=== PATIENT | male | born 1990 | race Caucasian/White ===

== ENCOUNTER 2017-02-27 10:54 | Emergency (ER) | payer SELFPAY ==
[~2017-02-27] VITALS: Ht 180.3 cm; Wt 68.0 kg
[~2017-02-27 10:54] MED LIST: AFRIN 20 ML20 M1 NS; AUGMENTIN 875-1 EACH PO; NOMEDS XX; SILVADENE CR 4400 GM EX; VICODIN 5/6 EACH/PAK OR; XANAX 1MG TABLET1 MG PO
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
[2017-02-27 11:25] VITALS: BP 143/81
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
== END 2017-02-27 11:25 | disposition home or self-care (01) ==
LOC: ER 10:54
DX: S62.624A Displaced fracture of middle phalanx of right ring finger, initial encounter for closed fracture (principal); V29.9XXA Motorcycle rider (driver) (passenger) injured in unspecified traffic accident, initial encounter; Y92.414 Local residential or business street as the place of occurrence of the external cause; Z87.891 Personal history of nicotine dependence

== ENCOUNTER → 2017-04-01 | Outpatient (CLI) | payer MEDICAID ==
--- NOTE | 2017-04-01 15:21 | RADIOLOGY REPORT PS360 ---
HAND-RT 3 VIEWS HISTORY: RT HAND PAIN ORDERING PHYSICIAN: ROGERS BENAVIDES MD PATIENT AGE: 26 years COMPARISON: None FINDINGS: There is a nondisplaced healing fracture involving the proximal aspect of the middle phalanx of the fourth finger with mild dorsal angulation of the distal fracture fragment. Callus formation is present in the fracture line is still visible. IMPRESSION: Healing fracture middle phalanx fourth digit
== END ==
LOC: RAD 09:39
DX: M79.641 Pain in right hand (principal)

== ENCOUNTER 2017-05-11 12:11 | Emergency (ER) | payer MEDICAID ==
[~2017-05-11] VITALS: Ht 180.3 cm; Wt 68.0 kg
--- OUTSIDE RECORDS SUMMARY | 2017-05-11 12:17 | External Medical Summary Rpt | CCD ---
Author Author , HAMIDA Organization HAMIDA Address Unknown Phone [email or web address] Immunization Name Date Rout CVX Reac Dose Comm Prov Is Faci e tion ent ider Refu lity Give sed n Tdap 05-1 115 999 Hist D203 No D203 , 2-20 oric 45 45 Adso 16 al rbed Info rmat ion - Sour ce Unsp ecif ied
--- OUTSIDE RECORDS SUMMARY | 2017-05-11 12:17 | External Medical Summary Rpt | CCD ---
Author Author , HAMIDA MEI Address Unknown Phone [email or web address] Care Team Providers Care Bottomer Operator Name Role Phone [facility] Unavailable [facility], [facility] Purpose Continuity of Care Document - 02-21-2013 through 2016 Problems Code Diagnosis DOS Provider Status [id number] PAIN IN 04-01-2017 [facility] [id number] DISPLACED 02-27-2017 [facility] FINGER INIT CLOS FX S62.604A FRACTURE OF UNSP PHALANX OF RIGHT RING FINGER, INIT Allergies, Adverse Reactions, Alerts Type Allergy to substance Adverse Reaction to Substance Substance Reaction Severity NO KNOWN ALLERGIES Unknown Unknown Vital Signs 02-21-2013 19:25 Name Value Interpretat Reference Comment ion Range BP 76 mm[Hg] Diastolic BP Systolic 130 mm[Hg] Heart 70 /min Rate/Pulse O2% 98 % Respiratory 20 /min Rate 02-21-2013 18:37 Name Value Interpretat Reference Comment ion Range BP 81 mm[Hg] Diastolic BP Systolic 121 mm[Hg] Heart 72 /min Rate/Pulse O2% 98 % Respiratory 20 /min Rate Results Labs Lab Lab Date Result Refere Interp Status Commen Order Detail nces retati t Range on Herpes simplex virus identified in Unspecified specimen by Organism specific culture (01-13-2017 11:00) Herpes NO complet simplex 017 HERPES ed virus 11:00 VIRUS identif ISOLATE ied in D Unspeci fied specime n by Shell vial culture CHLAMYDIA AND GONORRHEA TESTING (01-13-2017 11:00) Chlamyd NEGATIV complet ia 017 E ed trachom 11:00 atis rRNA [Presen ce] in Unspeci fied specime n by Probe & target amplifi cation method Neisser NEGATIV complet ia 017 E ed gonorrh 11:00 oeae rRNA [Presen ce] in Unspeci fied specime n by Probe & target amplifi cation method CHLAMYDIA AND GONORRHEA TESTING (01-13-2017 11:00) COLLECT AH complet OR 017 ed 11:00 ETHNICI WHITE, complet TY 017 NON-HIS ed 11:00 PANIC KIT 10-31-2 complet EXPIRAT 017 017 ed ION 11:00 DATE SYMPTOM NO complet S 017 ed 11:00 REASON VOLUNTE complet FOR 017 ER/MEDI ed REQUEST 11:00 MARIE PROBLEM SPECIME MALE complet N 017 URETHRA ed SOURCE 11:00 L PREGNAN NO complet T 017 ed 11:00 CHART N/A complet NUMBER 017 ed 11:00 Chlamyd Pending complet ia 017 ed trachom 11:00 atis rRNA [Presen ce] in Unspeci fied specime n by Probe & target amplifi cation method Neisser Pending complet ia 017 ed gonorrh 11:00 oeae rRNA [Presen ce] in Unspeci fied specime n by Probe & target amplifi cation method Herpes simplex virus identified in Unspecified specimen by Organism specific culture (01-13-2017 11:00) COLLECT complet OR 017 ed 11:00 ETHNICI WHITE/N complet TY 017 ON-HISP ed 11:00 ANIC SPECIME SWAB complet N 017 ed SOURCE 11:00 GESTATI N/A complet ON 017 ed 11:00 DATE OF 3 WEEKS complet 017 AGO ed SYMPTOM 11:00 S CHART N/A complet NUMBER 017 ed 11:00 SYMPTOM LESIONS complet S 017 ed 11:00 Herpes Pending complet simplex 017 ed virus 11:00 identif ied in Unspeci fied specime n by Shell vial culture Encounters Encounter Start End Date Code Location Performer Type Date [facility] (ER) 3 18:26 3 19:31 [facility]
--- OUTSIDE RECORDS SUMMARY | 2017-05-11 12:17 | External Medical Summary Rpt | CCD ---
Author Author , HAMIDA Organization HAMIDA Address Unknown Phone [email or web address] Immunization Name Date Rout CVX Reac Dose Comm Prov Is Faci e tion ent ider Refu lity Give sed n Tdap 05-1 115 999 Hist D203 No D203 , 2-20 oric 45 45 Adso 16 al rbed Info rmat ion - Sour ce Unsp ecif ied
--- OUTSIDE RECORDS SUMMARY | 2017-05-11 12:17 | External Medical Summary Rpt | CCD ---
Author Author [employer] Organization [employer] Address Unknown Phone Unavailable Purpose Continuity of Care Document - through 2016
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
--- OUTSIDE RECORDS SUMMARY | 2017-05-11 12:17 | External Medical Summary Rpt ---
Author Author HAMIDA Purcell, HAMIDA Production Organization [employer] Address Unknown Phone Unavailable Results Herpes simplex virus identified in Unspecified specimen by Organism specific culture Observa Value Referen Units Interpr Notes Date tion ce etation Range COLLECT AH No No No No Jan 13 OR informa informa informa informa 2017 tion in tion in tion in tion in 11:00 source source source source AM data data data data ETHNICI WHITE/N No No No No Jan 13 TY ON-HISP informa informa informa informa 2017 ANIC tion in tion in tion in tion in 11:00 source source source source AM data data data data SPECIME SWAB No No No No Jan 13 N informa informa informa informa 2017 SOURCE tion in tion in tion in tion in 11:00 source source source source AM data data data data GESTATI N/A No No No No Jan 13 ON informa informa informa informa 2017 tion in tion in tion in tion in 11:00 source source source source AM data data data data DATE OF 3 WEEKS No No No No Jan 13 AGO informa informa informa informa 2017 SYMPTOM tion in tion in tion in tion in 11:00 S source source source source AM data data data data CHART N/A No No No No Jan 13 NUMBER informa informa informa informa 2017 tion in tion in tion in tion in 11:00 source source source source AM data data data data SYMPTOM LESIONS No No No No Jan 13 S informa informa informa informa 2017 tion in tion in tion in tion in 11:00 source source source source AM data data data data Herpes NO No No No METHOD Jan 13 simplex HERPES informa informa informa OF 2017 virus VIRUS tion in tion in tion in ANALYSI 11:00 identif ISOLATE source source source S: AM ied in D data data data VIRAL Unspeci ISOLATI fied ONNORMA specime L n by RANGE: Shell NO vial VIRUS culture ISOLATE D\.br\T his report contain s patient informa tion that must be protect ed in accorda nce with the Health Insuran ce Portabi lity and Account ability Act. CHLAMYDIA AND GONORRHEA TESTING Observa Value Referen Units Interpr Notes Date tion ce etation Range COLLECT AH No No No No Jan 13 OR informa informa informa informa 2017 tion in tion in tion in tion in 11:00 source source source source AM data data data data ETHNICI WHITE, No No No No Jan 13 TY NON-HIS informa informa informa informa 2017 PANIC tion in tion in tion in tion in 11:00 source source source source AM data data data data KIT 10-31-2 No No No No Jan 13 EXPIRAT 017 informa informa informa informa 2017 ION tion in tion in tion in tion in 11:00 DATE source source source source AM data data data data SYMPTOM NO No No No No Jan 13 S informa informa informa informa 2017 tion in tion in tion in tion in 11:00 source source source source AM data data data data REASON VOLUNTE No No No No Jan 13 FOR ER/MEDI informa informa informa informa 2017 REQUEST MARIE tion in tion in tion in tion in 11:00 PROBLEM source source source source AM data data data data SPECIME MALE No No No No Jan 13 N URETHRA informa informa informa informa 2017 SOURCE L tion in tion in tion in tion in 11:00 source source source source AM data data data data PREGNAN NO No No No No Jan 13 T informa informa informa informa 2017 tion in tion in tion in tion in 11:00 source source source source AM data data data data CHART N/A No No No No Jan 13 NUMBER informa informa informa informa 2017 tion in tion in tion in tion in 11:00 source source source source AM data data data data Chlamyd NEGATIV No No No NEGATIV Jan 13 ia E informa informa informa E 2017 trachom tion in tion in tion in RESULT= 11:00 atis source source source WITHIN AM rRNA data data data NORMAL [Presen ce] in LIMITSP Unspeci OSITIVE fied specime RESULT= n by Probe & ABNORMA target LEQUIVO MARIE amplifi RESULT= cation method INDETER MINATEU NSATISF ACTORY RESULT= INVALID Neisser NEGATIV No No No NEGATIV Jan 13 ia E informa informa informa E 2017 gonorrh tion in tion in tion in RESULT= 11:00 oeae source source source WITHIN AM rRNA data data data NORMAL [Presen ce] in LIMITSP Unspeci OSITIVE fied specime RESULT= n by Probe & ABNORMA target LEQUIVO MARIE amplifi RESULT= cation method INDETER MINATEU NSATISF ACTORY RESULT= INVALID THE APTIMA COMBO 2 ASSAY IS NOT INTENDE D FOR THE EVALUAT ION OF SUSPECT EDSEXUA L ABUSE OR FOR OTHER MEDICO- LEGAL INDICAT IONS. FOR THOSE PATIENT S FORWHOM A FALSE POSITIV E RESULT MAY HAVE ADVERSE PSYCHO- SOCIAL IMPACT, [facility] NG.\.br \This report contain s patient informa tion that must be protect ed in accorda nce with the Health Insuran ce Portabi lity and Account ability Act. CHLAMYDIA AND GONORRHEA TESTING Observa Value Referen Units Interpr Notes Date tion ce etation Range COLLECT AH No No No No Jan 13 OR informa informa informa informa 2017 tion in tion in tion in tion in 11:00 source source source source AM data data data data ETHNICI WHITE, No No No No Jan 13 TY NON-HIS informa informa informa informa 2017 PANIC tion in tion in tion in tion in 11:00 source source source source AM data data data data KIT 10-31-2 No No No No Jan 13 EXPIRAT 017 informa informa informa informa 2017 ION tion in tion in tion in tion in 11:00 DATE source source source source AM data data data data SYMPTOM NO No No No No Jan 13 S informa informa informa informa 2017 tion in tion in tion in tion in 11:00 source source source source AM data data data data REASON VOLUNTE No No No No Jan 13 FOR ER/MEDI informa informa informa informa 2017 REQUEST MARIE tion in tion in tion in tion in 11:00 PROBLEM source source source source AM data data data data SPECIME MALE No No No No Jan 13 N URETHRA informa informa informa informa 2017 SOURCE L tion in tion in tion in tion in 11:00 source source source source AM data data data data PREGNAN NO No No No No Jan 13 T informa informa informa informa 2017 tion in tion in tion in tion in 11:00 source source source source AM data data data data CHART N/A No No No No Jan 13 NUMBER informa informa informa informa 2017 tion in tion in tion in tion in 11:00 source source source source AM data data data data Chlamyd Pending No No No No Jan 13 ia informa informa informa informa 2017 trachom tion in tion in tion in tion in 11:00 atis source source source source AM rRNA data data data data [Presen ce] in Unspeci fied specime n by Probe & target amplifi cation method Neisser Pending No No No \.br\Jan 13 ia informa informa informa is 2017 gonorrh tion in tion in tion in report 11:00 oeae source source source contain AM rRNA data data data s [Presen patient ce] in Unspeci informa fied tion specime that n by must be Probe & target protect ed in amplifi accorda cation nce method with the Health Insuran ce Portabi lity and Account ability Act. Herpes simplex virus identified in Unspecified specimen by Organism specific culture Observa Value Referen Units Interpr Notes Date tion ce etation Range COLLECT AH No No No No Jan 13 OR informa informa informa informa 2017 tion in tion in tion in tion in 11:00 source source source source AM data data data data ETHNICI WHITE/N No No No No Jan 13 TY ON-HISP informa informa informa informa 2017 ANIC tion in tion in tion in tion in 11:00 source source source source AM data data data data SPECIME SWAB No No No No Jan 13 N informa informa informa informa 2017 SOURCE tion in tion in tion in tion in 11:00 source source source source AM data data data data GESTATI N/A No No No No Jan 13 ON informa informa informa informa 2017 tion in tion in tion in tion in 11:00 source source source source AM data data data data DATE OF 3 WEEKS No No No No Jan 8 AGO informa informa informa informa 2017 SYMPTOM tion in tion in tion in tion in 11:00 S source source source source AM data data data data CHART N/A No No No No Jan 8 NUMBER informa informa informa informa 2017 tion in tion in tion in tion in 11:00 source source source source AM data data data data SYMPTOM LESIONS No No No No Jan 13 S informa informa informa informa 2017 tion in tion in tion in tion in 11:00 source source source source AM data data data data Herpes Pending No No No \.br\Jan 13 simplex informa informa informa is 2017 virus tion in tion in tion in report 11:00 identif source source source contain AM ied in data data data s Unspeci patient fied specime informa n by tion Shell that vial must be culture protect ed in scipioa nce with the Health Insuran katlin fuentes and Account ability Act.
--- OUTSIDE RECORDS SUMMARY | 2017-05-11 12:17 | External Medical Summary Rpt ---
[...] MAY HAVE ADVERSE PSYCHO- SOCIAL IMPACT, [facility] RETESTI NG.\.br \This report contain s [...] vial must be culture protect ed in chinlea nce with the Health Insuran katlin fuentes and Account ability Act.
[2017-05-11 13:45] LABS: UTC STREP SCREEN NOT DETECTED (NOTDETECTED)
--- NOTE | 2017-05-11 13:48 | Urgent Treatment Center Report ---
History of Present Issue Date/Time Seen by Provider 05/11/17 1347 Visit Reason Pt arrived:Walked Presenting Problem:PT C/O COUGH, SORE THROAT, HEAD AND CHEST CONGESTION, FEVER, BODY ACHES. Location if Accident: Onset of symptoms date/time:/ or onset unknown for:MEDICAL HX UNKNOWN Have you (or family members/close friends) recently traveled outside the [place]? N If Yes, where/when: Have you had exposure to infectious disease within the past month? TB? Other? Specify: c/o nonprod cough, sore throat, nasal congestion. Started one week ago w/ fever, aches chills. That has resolved. Was exposed to strep and wants that ruled out. Denies SOA, wheezing. Hasn't taken or tried anything for symptoms. Needs work xcuse for today. Cough gets better throughout day but worse again at night. Source patient Exam Limitations no limitations ALLERGIES Coded Allergies: No Known Allergies (09/24/16) History Medical History General CAD? No Angina: No DE: No Hypertension? No Hyperlipidemia? No CHF? No DVT? No PE? No COPD? No Asthma? No Anemia? No GERD? No Gastric ulcers? No GI Bleed? No Hernia? No Thyroid Problems? No Hypothyroidism? No CVA? No Seizures? No Diabetes? No Renal Insuffiency? No UTI? No Stones? No GB Disease: No Nephritic Syndrome? No Asplenia? No Hepatitis? No Sickle Cell Disease? No Arthritis? No Migraines? No Cataracts? No Glaucoma? No MRSA? No HIV? No TB? No Anxiety? No Depression? No Cancer? No More? No Immunization HX DT/Tetanus 1-4 Years Ago Surgical Hx Previous Surgery?Y WISDOM TEETH EAR TUBES Social History Smoking Hx Smoker: Current Every Day Smoker Tobacco: Yes Type Cigarettes Packs/day < 1 Pack Alcohol Alcohol: Yes Review of Systems All Other Systems Reviewed and Negative Constitutional see HPI Eyes denies drainage ENT see HPI, nose discharge, nose congestion. denies: ear pain, throat swelling. Respiratory see HPI Cardiovascular denies chest pain Gastrointestinal denies no symptoms reported Musculoskeletal denies joint pain Skin denies rash Psychiatric/Neurological denies headache Physical Exam Vital Signs Vital Signs Date Time Temp Pulse Resp B/P Pulse O2 O2 Flow FiO2 Ox Delivery Rate 05/11 1302 98.7 105 20 143/96 100 General Appearance normal appearance, no apparent distress Eye Exam - bilateral eye normal exam Ear, Nose, Throat normal ENT inspection (x/ mild nasal congestion) Neck non-tender, supple Respiratory Status No: respiratory distress, productive cough, non productive cough. Lung Sounds anterior: lungs clear. posterior: lungs clear. bilateral: lungs clear. Cardiovascular regular rate/rhythm, no peripheral edema, no murmur Neurologic alert, oriented x 3 Skin normal color, warm/dry Lymphatic no adenopathy Medical Decision Making LABS/Meds/Orders Pt receiving controlled substance in ED? No Results/Orders Laboratory Tests 05/11/17 1302: Influenza Type A Ag NOT DETECTED, Influenza Type B Ag NOT DETECTED, Group A Strep Screen NOT DETECTED Orders Procedure Date/time Status UTC STREP SCREEN 05/11 1302 Complete UTC FLU A,B 05/11 1302 Complete Departure Departure Time of Disposition 1351 Disposition DC Home or Self Care(routine) Clinical Impression Primary Impression: Upper respiratory virus Condition STABLE Referrals NO REFERRAL IMMEDIATELY for new or worsening symptoms OR no noticeable improvement over the next 72 hours. 911 for difficulty breathing or swallowing. Patient Instructions DI for Viral Upper Respiratory Infection -- Adult Additional Instructions * No sign of bacterial infection. Likely viral. Virus can take 7-14 days to run their course * Monitor Temp.FU if fever develops * Encourage fluids, water, gatorade, powerade, pedialyte if /toddler/child * warm salt water gargles * warm fluids * sore throat lozenges * sleep elevated * humidifier/vaporizer * Bromfed may cause drowsiness. Know how it effects you (or your child) before driving, caring for small children, or sending your child to school. No other antihistamines/allergy medications while taking bromfed. * * Your throat swab was sent for culture. Those results are typically sent to your primary care. Be sure to follow up in 2-3 days if no improvement so they can review those results and treat if necessary. If you don't have primary care, I recommend you get one but in the mean time, you will have to return to a walk in clinic. Discharge Counseling Counseled pt/family regarding diagnosis, test results, medications/RX, home care, follow up needs Prescriptions Current Visit Scripts D-METHORPHAN HB/P-EPD HCL/BPM (Bromfed Dm Cough Syrup) 10 ML PO QIDP PRN cough #240 ML at 1350
[2017-05-11 13:53] VITALS: BP 143/96
[2017-05-11] MEDS ORDERED: BROMFED DM COU118 ML PO (13:53)
== END 2017-05-11 13:54 | disposition home or self-care (01) ==
LOC: UTC 12:11
PROVIDERS: Nurse Practitioner Family
DX: J06.9 Acute upper respiratory infection, unspecified (principal); F17.210 Nicotine dependence, cigarettes, uncomplicated